=== PATIENT | female | born 1930 | race Caucasian/White ===

== ENCOUNTER 2017-08-10 14:19 | Outpatient (CLI) ==
[2016-06-17 15:02] VITALS: BMI 30.4
== END 2017-08-10 14:20 | disposition home or self-care (01) ==
LOC: CAR 14:19
PROVIDERS: ATTEND Family Medicine
DX: R06.02 Shortness of breath (principal)
CPT/HCPCS: 94761

== ENCOUNTER 2018-04-22 10:00 | Outpatient (RCR) ==
[2016-06-17 15:02] VITALS: BMI 30.4
--- NOTE | 2018-04-10 14:16 | RS.OPPTEV2 ---
Date of Note: 04/10/18 Visit #: 1 Date of Evaluation: 04/10/18 Payer Source: MEDICARE Surgery Performed?: Yes (Right TKA ) Date of Procedure: 03/04/18 Treatment Diagnosis: Right knee stiffness, knee pain, s/p TKA History of Condition/Mechanism of Injury:: Mrs. 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 She a TKA on the left knee in 2016. States this TKA on the right knee has not gone as well as the left knee. States she was in the hospital for 3 days and then went to [place]. States she was not happy with her therapy so she insisted on going home and then received Home Health Physical Therapy. [facility] just ended two days ago. Prior Level of Function.....Patient was independent with: ADL's, Self Care, Caregiving, Ambulation/Mobility, Community Integration/Access Level of Function: Prior to surgery, patient was able to drive and attended community functions and activities such as mormonism. Functional Limitations: Sleep, Self Care, ADL's, Standing, Bending, Squatting, Ambulation, Community Access/Integration Current Subjective/complaints:: Patient states she continues to perform a HEP that she was given from Home Health PT. States she is worried that her ROM is behind. She has been cutting back on her pain medications. She has Oxycodone, but prefers to take OTC medication and ice the knee. She denies tingling or numbness in the right LE. She states she has had no falls in the home. She is able to walk around her apartment without an assistive device, but admits to holding onto buckley or furniture. States she takes a straight cane for long distances. She just progressed to a cane a few days ago. States she wants to be able to drive again. She lives with her at [place]. He has had a stroke and she helps care for him. She believes she goes back to see Dr. Moyer at the end of this month. She expresses difficulty with performing her usual daily activities, getting in/out of vehicle, walking even short distances, and rolling over in bed. States last night was the first time she was able to roll over to her right side. States steps are difficult. She has no stairs at home, but does have a few steps to enter her mormonism. Treatment Side (optional): Right Medical History Medical History: Hypertension, Diabetes, Arthritis Surgical History Comments:: Left TKA 06/14/16, colorectal cancer with 18 inches of colon removed 2014 Smoking Status: Never smoker Hx Home Medications: Oxycodone (has stopped taking), OTC arthritis medication, blood pressure medication Patient's Goals: Her goal is to return to driving. Pain Assessment - Pain Description Pain Location: right knee Pain Description: Throbbing, Aching Current Pain Intensity: 4/10 Functional Outcome Measure LE Functional Scale: 18 (18/80=77.5% impairment) Other: Gait speed today is .45 meters/second with a straight cane, which puts her in the category of being a limited community ambulator. The mean speed for a female in her age category is .63 m/s. - G Codes & Severity Modifier G Codes & Modifier: Mobility current CL. Mobility goal CJ Source of G Code score: Based on both the LE functional scale and Gait speed Observation - Observation Inspection: Patient presents to therapy without an assistive device. She demonstrates transpore tape over the incision from her TKA. The incision appears clean and free of discharge. Demonstrates a small, quarter-size area of redness just medial to incision line. Gait - Gait Pattern Gait Comments: Pt demonstrated difficulty ambulating without an assistive device , so she was given a straight cane to use. She ambulates with a st. cane in the left hand with decreased stance on the right LE. Demonstrates decreased right knee and hip flexion during swing phase. Also demonstrates decreased terminal knee extension at heel strike on the right LE. Transfers from chair or slow and cautious. She uses both arms to push from arm rests of chair and takes her time to get fully erect before initiating ambulation. - Left Knee ROM Left Knee Extension: -2 degrees from full extension Left Knee Flexion: 114 (degrees AROM) - Right Knee ROM Right Knee Extension: -13 degrees from full extension Right Knee Flexion: 73 (degrees AROM) Knee ROM Limitations: Soft Tissue Tightness, Pain Comments: Following ROM ex's and Joint mobs, patient demonstrates AROM -10 to 80 degrees flexion. - Left Knee Strength Left Knee Extension: 4+ Good + Left Knee Flexion: 4+ Good + - Right Knee Strength Right Knee Extension: 4 Good Right Knee Flexion: 4 Good Sensation - Sensation Right Lower Extremity: Intact/Normal Left Lower Extremity: Intact/Normal Balance - Sitting Balance Static Sitting Balance: Good Dynamic Sitting Balance: Good - Standing Balance Static Standing Balance: Good Dynamic Standing Balance: Fair (+) Interventions - Exercise/Activities/Manual Therapy Exercises/Activities: Patient received ROM to the right knee into flex/ extension. Assisted with stretching the heelcord of the right LE while at end range knee extension. Performed SLR and SAQ's, 2 sets of 10 reps without need for assistance. Following exercises, patient demonstrated -10 to 80 degrees AROM of the right knee. Advised patient to perform ROM exercises 3 times a day. Instructed on use of pillow or towel roll under ankle for quad sets and demonstrated how she might be better able to perform active knee flexion in standing rather than supine. Encouraged patient to continue icing the knee for pain and swelling management. Total minutes of Exercise: X 14 mins Manual Therapy: Received Grades I-II Joint mobilization into distraction of the Femoral-Tibia joint to help facilitate flexion. HOME EXERCISE PROGRAM: HEP from Home Health therapy. Gave instructions for quads sets with roll under ankle and standing HS curls for knee flexion. - Charges Timed Code Treatment Minutes: 14 mins Total Treatment Time: 56 mins Procedures billed for this date of service:: DERECK Sanches, EX EVALUATION COMPLEXITY LEVEL EVALUATION COMPLEXITY LEVEL: HISTORY: Low, EXAM OF BODY SYSTEMS: Low, CLINICAL PRESENTATION: Low, CLINICAL DECISION MAKING: Low Assessment Assessment: Patient presents to therapy with a diagnosis of s/p right TKA. She presents with limited AROM and strength of the right knee joint. Demonstrates difficulty with ambulation due to right knee limitations. She reports difficulty with selfcare, ADL's, sleep, and currently relies on staff from [place] for transportation because she is unable to drive. She presents to be at ~ 77% disability at this time per LE functional scale and based on her Gait speed. She demonstrates several gait deviations, requires an assistive device, and presents to be at risk for falls. She shows great potential to benefit from therapy to regain functional right knee AROM and strength to return to her prior level of independence. Patient Education: Education of diagnosis, Body/Joint mechanics, Home Exercise Program, Home Safety, Education of Plan of Care Rehab Potential: Good Short Term Goals Goal #1: Patient independent and compliant with HEP. Goal to be met by: 04/20/18 Goal #2: Right knee AROM -5 to 95 degrees. Goal to be met by: 04/24/18 Goal #3: Gait speed improved to .60 m/s with use of straight cane. Goal to be met by: 04/24/18 Fdc Goals Goal #1: Pt knows HEP and to continue ex's to maintain functional level at D/C. Goal to be met by: 05/20/18 Goal #2: Score on LE functional scale improved to < 39% impairment. Goal to be met by: 05/20/18 Goal #3: Pt to amb. community distances w/o AD with good safety and min. gt dev. Goal to be met by: 05/20/18 Goal #4: Right knee AROM WFL's to perform all selfcare and ADL's, including driving. Goal to be met by: 05/20/18 Plan - Treatment to be Provided Procedures: Therapeutic Exercises, Therapeutic Activity, Gait Training, Neuromuscular Rehab, Manual Therapy (Joint Mobilizations), Patient Education Modalities: Cryotherapy, Hot Packs (as needed prior to stretching/ROM) - Treatment Plan Frequency: 3 X week Duration: 4 weeks ORDER # VISITS AND/OR THROUGH DATE: 05/20/18 - Treatment Code (1) Knee pain Code(s): M25.569 - PAIN IN UNSPECIFIED KNEE Qualifiers: Chronicity: acute Laterality: right Qualified Code(s): M25.561 - Pain in right knee (2) Knee stiffness Qualifiers: Laterality: right Qualified Code(s): M25.661 - Stiffness of right knee, not elsewhere classified (3) Gait abnormality Code(s): R26.9 - UNSPECIFIED ABNORMALITIES OF GAIT AND MOBILITY Comments: R26.9 (4) Aftercare following joint replacement surgery Code(s): Z47.1 - AFTERCARE FOLLOWING JOINT REPLACEMENT SURGERY Qualifiers: Joint replacement surgery site: knee Laterality: right Qualified Code(s) : Z47.1 - Aftercare following joint replacement surgery; Z96.651 - Presence of right artificial knee joint
--- NOTE | 2018-04-12 16:01 | RS.OPPTDN ---
Subjective Date of Note: 04/12/18 Visit #: 2 Date of Evaluation: 04/10/18 Payer Source: MEDICARE Treatment Diagnosis: Right knee stiffness, knee pain, s/p TKA Current Subjective/complaints:: Patient says that she has taken a pain pill prior to coming to therapy. Reports that she seems to be gaining mobility and strength. She is working on HEP. Reports her swelling is fairly low. - Treatment Modality: Electrical Stim Unattended Parameters/Method Applied: hivolt 4 small pads surrounding the R knee @ 175-200 pk volts crossed x 15 mins Treatment Area: AFTER THEREX Patient Position: Supine - Heat/Cryotherapy Treatment: Cryotherapy Interventions - Exercise/Activities/Manual Therapy Exercises/Activities: Patient began with passive stretching for R Hamstrings and heel cords. PROM and gentle stretch for flex/ext. Patellar mobs. QS, heel slides with intermittent overpressures, SAQ, hip abd, DF with red tband, SLR all 2x10 reps. LAQ x 10. Finished with more PROM/stretching. Total minutes of Exercise: 30 Manual Therapy: na HOME EXERCISE PROGRAM: HEP from Home Health therapy. Gave instructions for quads sets with roll under ankle and standing HS curls for knee flexion. - Charges Timed Code Treatment Minutes: 30 Total Treatment Time: 50 Procedures billed for this date of service:: cp, estim (un), ex2 Assessment: Patient demo -5 to 83 degrees at end of session in supine AA and with hip at 90 for knee flexion. Patient Education: Education of diagnosis, Home Exercise Program, Education of Plan of Care Patient demonstrates compliance with HEP?: Yes Short Term Goals Goal #1: Patient independent and compliant with HEP. Goal to be met by: 04/20/18 Progress towards Goal:: Progressing Goal #2: Right knee AROM -5 to 95 degrees. Goal to be met by: 04/24/18 Progress towards Goal:: Progressing Goal #3: Gait speed improved to .60 m/s with use of straight cane. Goal to be met by: 04/24/18 Fpc Goals Goal #1: Pt knows HEP and to continue ex's to maintain functional level at D/C. Goal to be met by: 05/20/18 Goal #2: Score on LE functional scale improved to < 39% impairment. Goal to be met by: 05/20/18 Goal #3: Pt to amb. community distances w/o AD with good safety and min. gt dev. Goal to be met by: 05/20/18 Goal #4: Right knee AROM WFL's to perform all selfcare and ADL's, including driving. Goal to be met by: 05/20/18 Plan PLAN OF CARE EXPIRES ON:: 05/20/18 ORDER # VISITS AND/OR THROUGH DATE: 05/20/18 PLAN: Patient to continue for ROM, pain relief, strengthening to R knee.
--- NOTE | 2018-04-15 13:22 | RS.OPPTDN ---
Subjective Date of Note: 04/15/18 Visit #: 3 Date of Evaluation: 04/10/18 Payer Source: MEDICARE Treatment Diagnosis: Right knee stiffness, knee pain, s/p TKA Current Subjective/complaints:: Patient says she did a lot of errands yesterday. Reports she walked through several stores and has lost her cane as well. States she continues to work on HeP. Pain Assessment - Pain Description Pain Location: Patient does not rate, but pain is usually mild on average and raises with stretching into knee flexion - Treatment Modality: Electrical Stim Unattended Parameters/Method Applied: hivolt 4 small pads crossed over the R knee @ 215 pk volts x 15 mins after therex Patient Position: Supine - Heat/Cryotherapy Treatment: Cryotherapy Interventions - Exercise/Activities/Manual Therapy Exercises/Activities: Patient began with passive stretching for R Hamstrings and heel cords. PROM and gentle stretch for flex/ext. Patellar mobs. QS, heel slides with intermittent overpressures, SAQ added 1#, hip abd, DF with red tband, ham curls with red tband, contract/relax for flex/ext, SLR all 2x10 reps. LAQ x 10. Finished with more PROM/stretching, QS and heel slides. Began stationary bike x 3 mins for half revolutions. Assisted patient to front door providing SC for her to use until she got into her vehicle with caregiver. Total minutes of Exercise: 34 Manual Therapy: na HOME EXERCISE PROGRAM: HEP from Home Health therapy. Gave instructions for quads sets with roll under ankle and standing HS curls for knee flexion. - Charges Timed Code Treatment Minutes: 34 Total Treatment Time: 49 Procedures billed for this date of service:: cp, estim (un), ex2 Assessment: Patient presents amb independently, but requires [employer] due to losing her cane. She has been very active over the weekend and has c/o's stiffness and ache. She was able to awais all progressive stretching and therex well, having elevation only with knee flexion. Some tenderness noted with patellar mobs. Patient able to self stretch on stationary bike with pedal rocks. Reduced pain level following modalities. Patient Education: Education of diagnosis, Home Exercise Program Patient demonstrates compliance with HEP?: Yes Short Term Goals Goal #1: Patient independent and compliant with HEP. Goal to be met by: 04/20/18 Progress towards Goal:: Progressing Goal #2: Right knee AROM -5 to 95 degrees. Goal to be met by: 04/24/18 Progress towards Goal:: Progressing Goal #3: Gait speed improved to .60 m/s with use of straight cane. Goal to be met by: 04/24/18 Senior Care Goals Goal #1: Pt knows HEP and to continue ex's to maintain functional level at D/C. Goal to be met by: 05/20/18 Goal #2: Score on LE functional scale improved to < 39% impairment. Goal to be met by: 05/20/18 Goal #3: Pt to amb. community distances w/o AD with good safety and min. gt dev. Goal to be met by: 05/20/18 Goal #4: Right knee AROM WFL's to perform all selfcare and ADL's, including driving. Goal to be met by: 05/20/18 Plan PLAN OF CARE EXPIRES ON:: 05/20/18 ORDER # VISITS AND/OR THROUGH DATE: 05/20/18 PLAN: Patient to continue TIW for modalities and therex to the R knee
--- NOTE | 2018-04-17 11:45 | RS.OPPTDN ---
Subjective Date of Note: 04/17/18 Visit #: 4 Date of Evaluation: 04/10/18 Payer Source: MEDICARE Treatment Diagnosis: Right knee stiffness, knee pain, s/p TKA Current Subjective/complaints:: Patient says her follow up appt went well yesterday. She had dermabond removed and xray demo all healing well. She admits to working on HEP often. She says her pain is relieved following treatments especially after modalities. Pain Assessment - Pain Description Pain Location: No incisional tenderness - Treatment Modality: Electrical Stim Unattended Parameters/Method Applied: hivolt 4 small pads uncrossed @ 255 pk volts Patient Position: Supine Interventions - Exercise/Activities/Manual Therapy Exercises/Activities: Patient began with passive stretching for R Hamstrings and heel cords. PROM and gentle stretch for flex/ext. Patellar mobs. QS, heel slides with intermittent overpressures, SAQ 1#, hip abd, DF with red tband , ham curls with red tband, contract/relax for flex/ext, SLR all 2x10 reps. LAQ x 10. Patient stands at railing to perform: heel raises, hip flexion, hip abd, and short range ham curl x 8 each. Patient received modalities at end of session. Total minutes of Exercise: 34 Manual Therapy: na HOME EXERCISE PROGRAM: HEP from Home Health therapy. Gave instructions for quads sets with roll under ankle and standing HS curls for knee flexion. - Charges Timed Code Treatment Minutes: 34 Total Treatment Time: 49 Procedures billed for this date of service:: cp, estim (un), ex2 Assessment: Patient presents with her SC amb steadily to our dept. She demo well healing incision with dermabond removed. She is able to demo slight increase in knee flexion with hip at 90 degrees to ~86 and ext to -4. She demo improved ease with performing SLR today. She does not amb at a faster speed, but for goal, this should improve as she progresses and ROM increases. Patient Education: Home Exercise Program, Home Safety Patient demonstrates compliance with HEP?: Yes Short Term Goals Goal #1: Patient independent and compliant with HEP. Goal to be met by: 04/20/18 Progress towards Goal:: Progressing Goal #2: Right knee AROM -5 to 95 degrees. Goal to be met by: 04/24/18 Progress towards Goal:: Progressing Goal #3: Gait speed improved to .60 m/s with use of straight cane. Goal to be met by: 04/24/18 Skilled Nursing Goals Goal #1: Pt knows HEP and to continue ex's to maintain functional level at D/C. Goal to be met by: 05/20/18 Progress towards goal: Progressing Goal #2: Score on LE functional scale improved to < 39% impairment. Goal to be met by: 05/20/18 Goal #3: Pt to amb. community distances w/o AD with good safety and min. gt dev. Goal to be met by: 05/20/18 Goal #4: Right knee AROM WFL's to perform all selfcare and ADL's, including driving. Goal to be met by: 05/20/18 Plan PLAN OF CARE EXPIRES ON:: 05/20/18 ORDER # VISITS AND/OR THROUGH DATE: 05/20/18 PLAN: Patient to continue to work on ROM and strength to the R LE.
--- NOTE | 2018-04-19 11:49 | RS.OPPTDN ---
Subjective Date of Note: 04/19/18 Visit #: 5 Date of Evaluation: 04/10/18 Payer Source: MEDICARE Treatment Diagnosis: Right knee stiffness, knee pain, s/p TKA Current Subjective/complaints:: Patient says she has been walking around in her apartment without her cane/RW and feels steady. She admits forgetting it for therapy and does not remember taking her pain medication this morning. - Treatment Modality: Electrical Stim Unattended Parameters/Method Applied: cross pattern hivolt over the R knee @ 185-230 pk volts x 15 mins after therex Patient Position: Supine - Heat/Cryotherapy Treatment: Hot Pack (15 mins to the R knee prior to therex in supine, cryo after with estim) Interventions - Exercise/Activities/Manual Therapy Exercises/Activities: Patient continues with passive stretching for R Hamstrings and heel cords. PROM and gentle stretch for flex/ext. Patellar mobs. Ankle over bolster to stretch for extension. Joint mobs grades I and II multiple reps. QS, heel slides with intermittent overpressures, SAQ 1#, hip abd, DF with red tband, ham curls with red tband, contract/relax for flex/ext, SLR all 2x10 reps. Sitting: Ball squeezes (aram hip add), LAQ 1#x 10. Contract/relax in sitting at EOB. Stationary bike for half revolutions with increased ability for patient to self stretch backwards x 4.5 mins. Measurements taken. Total minutes of Exercise: 38 Manual Therapy: na HOME EXERCISE PROGRAM: HEP from Home Health therapy. Gave instructions for quads sets with roll under ankle and standing HS curls for knee flexion. - Objective Findings Observations,measurements,etc.: Supine knee flexion to 85 degrees, with hip at 90: 88 degrees. EXT: -4 with QS - Charges Timed Code Treatment Minutes: 38 Total Treatment Time: 68 Procedures billed for this date of service:: cp, estim (un), ex3 Assessment: Patient improving with ROM this week and now amb independently at home and has been coming to PT without needing SC. She is not able to complete full revolutions on bike yet, but is more awais to self stretching while utilizing bike. Encouraged her to work on her HEP more often. Amb with near equal WB'ing. Patient Education: Education of diagnosis, Home Exercise Program, Education of Plan of Care Patient demonstrates compliance with HEP?: Yes Short Term Goals Goal #1: Patient independent and compliant with HEP. Goal to be met by: 04/20/18 Progress towards Goal:: Progressing Goal #2: Right knee AROM -5 to 95 degrees. Goal to be met by: 04/24/18 Progress towards Goal:: Progressing Goal #3: Gait speed improved to .60 m/s with use of straight cane. Goal to be met by: 04/24/18 Care Home Goals Goal #1: Pt knows HEP and to continue ex's to maintain functional level at D/C. Goal to be met by: 05/20/18 Progress towards goal: Progressing Goal #2: Score on LE functional scale improved to < 39% impairment. Goal to be met by: 05/20/18 Goal #3: Pt to amb. community distances w/o AD with good safety and min. gt dev. Goal to be met by: 05/20/18 Goal #4: Right knee AROM WFL's to perform all selfcare and ADL's, including driving. Goal to be met by: 05/20/18 Plan PLAN OF CARE EXPIRES ON:: 05/20/18 ORDER # VISITS AND/OR THROUGH DATE: 05/20/18 PLAN: Patient to continue TIW
--- NOTE | 2018-04-22 14:40 | RS.OPPTDN ---
Subjective Date of Note: 04/22/18 Visit #: 6 Date of Evaluation: 04/10/18 Payer Source: MEDICARE Treatment Diagnosis: Right knee stiffness, knee pain, s/p TKA Current Subjective/complaints:: Patient says that her knee is stiff and the heat last visit seemed to help with her motion and pain relief. She requests it today. Pain Assessment - Pain Description Pain Location: stiff - Heat/Cryotherapy Treatment: Hot Pack (15 mins to the R knee in supine) Interventions - Exercise/Activities/Manual Therapy Exercises/Activities: Patient continues with passive stretching for R Hamstrings and heel cords. PROM and gentle stretch for flex/ext. Patellar mobs. Ankle over bolster to stretch for extension. Joint mobs grades I and II multiple reps. QS, heel slides with intermittent overpressures, SAQ 1#, hip abd, DF with red tband, ham curls with red tband, contract/relax for flex/ext, SLR all 2x10 reps. Sitting: Ball squeezes (aram hip add), LAQ 1#x 10. Contract/relax in sitting at EOB. Stationary bike for half revolutions nearly making it completely around with increased ability for patient to self stretch backwards x 4.5 mins. Total minutes of Exercise: 38 Manual Therapy: na HOME EXERCISE PROGRAM: HEP from Home Health therapy. Gave instructions for quads sets with roll under ankle and standing HS curls for knee flexion. - Charges Timed Code Treatment Minutes: 38 Total Treatment Time: 53 Procedures billed for this date of service:: hp, ex3 Assessment: Patient presents with independent gait, slight decrease in WB to the R LE. She is able to demo 90 degrees of knee flexion today with hip at 90 degrees. Patient Education: Education of diagnosis, Home Exercise Program Patient demonstrates compliance with HEP?: Yes Short Term Goals Goal #1: Patient independent and compliant with HEP. Goal to be met by: 04/20/18 Progress towards Goal:: Progressing Goal #2: Right knee AROM -5 to 95 degrees. Goal to be met by: 04/24/18 Progress towards Goal:: Progressing Goal #3: Gait speed improved to .60 m/s with use of straight cane. Goal to be met by: 04/24/18 Progress towards Goal:: Progressing Alf Goals Goal #1: Pt knows HEP and to continue ex's to maintain functional level at D/C. Goal to be met by: 05/20/18 Progress towards goal: Progressing Goal #2: Score on LE functional scale improved to < 39% impairment. Goal to be met by: 05/20/18 Goal #3: Pt to amb. community distances w/o AD with good safety and min. gt dev. Goal to be met by: 05/20/18 Goal #4: Right knee AROM WFL's to perform all selfcare and ADL's, including driving. Goal to be met by: 05/20/18 Plan PLAN OF CARE EXPIRES ON:: 05/20/18 ORDER # VISITS AND/OR THROUGH DATE: 05/20/18 PLAN: Patient to continue TIW x 2 more weeks
== END 2018-04-23 23:59 ==
PROVIDERS: ATTEND Orthopaedic Surgery
DX: Z47.1 Aftercare following joint replacement surgery (principal); Z96.651 Presence of right artificial knee joint; M25.561 Pain in right knee; M25.661 Stiffness of right knee, not elsewhere classified; R26.9 Unspecified abnormalities of gait and mobility

== ENCOUNTER 2018-05-06 10:00 | Outpatient (RCR) ==
[2016-06-17 15:02] VITALS: BMI 30.4
--- NOTE | 2018-04-24 11:51 | RS.OPPTDN ---
Subjective Date of Note: 04/24/18 Visit #: 7 Date of Evaluation: 04/10/18 Payer Source: MEDICARE Treatment Diagnosis: Right knee stiffness, knee pain, s/p TKA Current Subjective/complaints:: Patient says she is now purposely leaving her cane at home when she goes out into the community. She says mobility has been better since using heat to her knee. Reporting less pain. Pain meds taken at morning and bedtime. Pain Assessment - Pain Description Pain Location: -12/01 - Heat/Cryotherapy Treatment: Hot Pack (20 mins to the R knee in supine in flexed position to provide increased ROM) Interventions - Exercise/Activities/Manual Therapy Exercises/Activities: Patient continues with passive stretching for R Hamstrings and heel cords. PROM and gentle stretch for flex/ext. Patellar mobs. Ankle over bolster to stretch for extension. QS, heel slides with intermittent overpressures, SAQ 1 1/2#, hip abd, DF with green tband, ham curls with red tband, contract/relax for flex/ext, SLR all 2x10 reps. Sitting: Ball squeezes (aram hip add), LAQ 1 1/2#x 10. Contract/relax in sitting at EOB. Ham curls with red tband at EOB x 10. Standing at railing: hip abd, ham curls, heel raises, hip flexion x 10 reps. Total minutes of Exercise: 38 Manual Therapy: na HOME EXERCISE PROGRAM: HEP from Home Health therapy. Gave instructions for quads sets with roll under ankle and standing HS curls for knee flexion. - Charges Timed Code Treatment Minutes: 38 Total Treatment Time: 58 Procedures billed for this date of service:: hp, ex3 Assessment: Patient shelbie improved awais to increased knee flexion exercises/ stretching. She is averaging ~92 degrees with hip flexed at 90. Limitation continues with ext, but improves with active QS to ~-3 degrees. Patient Education: Education of diagnosis, Home Exercise Program, Home Safety, Education of Plan of Care Patient demonstrates compliance with HEP?: Yes Short Term Goals Goal #1: Patient independent and compliant with HEP. Goal to be met by: 04/20/18 Progress towards Goal:: Progressing Goal #2: Right knee AROM -5 to 95 degrees. Goal to be met by: 04/24/18 Progress towards Goal:: Progressing Goal #3: Gait speed improved to .60 m/s with use of straight cane. Goal to be met by: 04/24/18 Progress towards Goal:: Progressing Manager English Goals Goal #1: Pt knows HEP and to continue ex's to maintain functional level at D/C. Goal to be met by: 05/20/18 Progress towards goal: Progressing Goal #2: Score on LE functional scale improved to < 39% impairment. Goal to be met by: 05/20/18 Goal #3: Pt to amb. community distances w/o AD with good safety and min. gt dev. Goal to be met by: 05/20/18 Goal #4: Right knee AROM WFL's to perform all selfcare and ADL's, including driving. Goal to be met by: 05/20/18 Plan PLAN OF CARE EXPIRES ON:: 05/20/18 ORDER # VISITS AND/OR THROUGH DATE: 05/20/18 PLAN: Continue TIW for progressive therex to the R knee
--- NOTE | 2018-04-26 12:01 | RS.OPPTDN ---
Subjective Date of Note: 04/26/18 Visit #: 8 Date of Evaluation: 04/10/18 Payer Source: MEDICARE Treatment Diagnosis: Right knee stiffness, knee pain, s/p TKA Current Subjective/complaints:: Patient says she has been working on bending her knee more at home. She says she is eager to resume driving. - Heat/Cryotherapy Treatment: Hot Pack (R knee prior to exercise x 20 mins supine) Interventions - Exercise/Activities/Manual Therapy Exercises/Activities: Patient continues with passive stretching for R Hamstrings and heel cords. PROM and stretch for flex/ext. Patellar mobs. Ankle over bolster to stretch for extension. QS, heel slides with intermittent overpressures, SAQ 1 1/2#, hip abd in hooklying with red tband, DF with green tband, ham curls with red tband, contract/relax for flex/ext, SLR all 2x10 reps. Sitting: Ball squeezes (aram hip add), LAQ 1 /2#x 10. Contract/relax in sitting at EOB. Ham curls with red tband at EOB x 10. Stationary bike x 5 mins half revolutions again with continuous self stretching for flexion. Total minutes of Exercise: 38 Manual Therapy: na HOME EXERCISE PROGRAM: HEP from Home Health therapy. Gave instructions for quads sets with roll under ankle and standing HS curls for knee flexion. - Objective Findings Observations,measurements,etc.: FLEX:93 degrees with heel slide - Charges Timed Code Treatment Minutes: 38 Total Treatment Time: 58 Procedures billed for this date of service:: hp, ex3 Assessment: Patient improving slowly with flexion. She is not able to make full revolutions on stationary bike, but feel like limitation is also due to fear because she self stretches to 95+ degrees during half revolutions. Patient very compliant with HEP and amb slightly faster with gt to/from dept not requiring AD or holding onto railing for support. Patient Education: Home Exercise Program Patient demonstrates compliance with HEP?: Yes Short Term Goals Goal #1: Patient independent and compliant with HEP. Goal to be met by: 04/20/18 Progress towards Goal:: Met Goal #2: Right knee AROM -5 to 95 degrees. Goal to be met by: 04/24/18 Progress towards Goal:: Partially Met Goal #3: Gait speed improved to .60 m/s with use of straight cane. Goal to be met by: 04/24/18 Progress towards Goal:: Progressing Bilingual Interpreter Goals Goal #1: Pt knows HEP and to continue ex's to maintain functional level at D/C. Goal to be met by: 05/20/18 Progress towards goal: Progressing Goal #2: Score on LE functional scale improved to < 39% impairment. Goal to be met by: 05/20/18 Goal #3: Pt to amb. community distances w/o AD with good safety and min. gt dev. Goal to be met by: 05/20/18 Goal #4: Right knee AROM WFL's to perform all selfcare and ADL's, including driving. Goal to be met by: 05/20/18 Plan PLAN OF CARE EXPIRES ON:: 05/20/18 ORDER # VISITS AND/OR THROUGH DATE: 05/20/18 PLAN: Continue x 1 more week per order
--- NOTE | 2018-04-29 14:23 | RS.OPPTDN ---
Subjective Date of Note: 04/29/18 Visit #: 9 Date of Evaluation: 04/10/18 Payer Source: MEDICARE Treatment Diagnosis: Right knee stiffness, knee pain, s/p TKA Current Subjective/complaints:: Patient says she thinks she "overdid" it on the weekend. She says she walked more than usual and she pulled weeds in her yard. She says she is having elevated pain today as a result. Pain Assessment - Pain Description Pain Location: elevated - Heat/Cryotherapy Treatment: Hot Pack Comments:: R knee prior to therex x 15 mins in supine Interventions - Exercise/Activities/Manual Therapy Exercises/Activities: Patient continues with passive stretching for R Hamstrings and heel cords. PROM and stretch for flex/ext. Patellar mobs. Joint mobs to improve flexion grades I-II. Ankle over bolster to stretch for extension. QS, heel slides with intermittent overpressures, SAQ 1 1/2#, hip abd in hooklying with red tband, DF with green tband, ham curls with red tband, contract/relax for flex/ext, SLR all 2x10 reps. Sitting: Ball squeezes (aram hip add), LAQ 1 1/2#x 10. Contract/relax in sitting at EOB. Ham curls with red tband at EOB x 10. Stationary bike x 5 mins half revolutions again with continuous self stretching for flexion. Finished with LAQ and standing knee bends. Total minutes of Exercise: 38 Manual Therapy: na HOME EXERCISE PROGRAM: HEP from Home Health therapy. Gave instructions for quads sets with roll under ankle and standing HS curls for knee flexion. - Charges Timed Code Treatment Minutes: 38 Total Treatment Time: 53 Procedures billed for this date of service:: hp, ex3 Assessment: Patient with elevated pain as a result of increased activity over the weekend. She is able to perform all routine therex today, but did have difficulty with awais gentle stretching for flexion. She is still unable to accomplish full revolutions on stationary bike, but feel she remains fearful of possibility of increased pain. Patient Education: Activity Modification Patient demonstrates compliance with HEP?: Yes Short Term Goals Goal #1: Patient independent and compliant with HEP. Goal to be met by: 04/20/18 Progress towards Goal:: Met Goal #2: Right knee AROM -5 to 95 degrees. Goal to be met by: 04/24/18 Progress towards Goal:: Partially Met Goal #3: Gait speed improved to .60 m/s with use of straight cane. Goal to be met by: 04/24/18 Progress towards Goal:: Progressing Supervisor Production Goals Goal #1: Pt knows HEP and to continue ex's to maintain functional level at D/C. Goal to be met by: 05/20/18 Progress towards goal: Progressing Goal #2: Score on LE functional scale improved to < 39% impairment. Goal to be met by: 05/20/18 Comments: Patient to complete next session Goal #3: Pt to amb. community distances w/o AD with good safety and min. gt dev. Goal to be met by: 05/20/18 Goal #4: Right knee AROM WFL's to perform all selfcare and ADL's, including driving. Goal to be met by: 05/20/18 Plan PLAN OF CARE EXPIRES ON:: 05/20/18 ORDER # VISITS AND/OR THROUGH DATE: 05/20/18 PLAN: Reassess next session. Patient to continue to progress therex.
--- NOTE | 2018-05-01 11:53 | RS.OPPTDN ---
Subjective Date of Note: 05/01/18 Visit #: 10 Date of Evaluation: 04/10/18 Payer Source: MEDICARE Treatment Diagnosis: Right knee stiffness, knee pain, s/p TKA Current Subjective/complaints:: Patient says she is going to try to practice getting in/out of the drivers seat of her van. She says she has no problem with the passenger side and wants to start driving. She reports sometimes she forgets to take her pain meds at bedtime. Michelle reports being able to do everything she needs to do at home with the exception of driving as she has assistance with heavier housekeeping at assisted living. - Heat/Cryotherapy Treatment: Hot Pack (20 mins to the R knee in supine) Interventions - Exercise/Activities/Manual Therapy Exercises/Activities: Patient continues with passive stretching for R Hamstrings and heel cords. PROM and stretch for flex/ext. Patellar mobs. Scar tissue massage. Joint mobs to improve flexion grades I-II. Ankle over bolster to stretch for extension. QS, heel slides with intermittent overpressures, SAQ 2#, hip abd in hooklying with red tband, DF with green tband , ham curls with red tband, contract/relax for flex/ext, SLR all 2x10 reps. Sitting: Ball squeezes (aram hip add), LAQ 2#x 10. Contract/relax in sitting at EOB. Hip flexion with 2# x 10. Ham curls with green tband at EOB x 10. Assisted with LE Functional Index and measured. Total minutes of Exercise: 40 Manual Therapy: na HOME EXERCISE PROGRAM: HEP from Home Health therapy. Gave instructions for quads sets with roll under ankle and standing HS curls for knee flexion. - Objective Findings Observations,measurements,etc.: LE Functional Index: 39/80 or 52% impairment - Charges Timed Code Treatment Minutes: 40 Total Treatment Time: 60 Procedures billed for this date of service:: hp, ex3 Assessment: Patient has progressed with mobility, strength, independent gait, and functionally per LE Index. She discusses holding further therapy after her final 2 visits due to her progress. However, she does not follow up with the orthopaedic in May. Patient Education: Home Exercise Program, Home Safety, Education of Plan of Care Patient demonstrates compliance with HEP?: Yes Short Term Goals Goal #1: Patient independent and compliant with HEP. Goal to be met by: 04/20/18 Progress towards Goal:: Met Goal #2: Right knee AROM -5 to 95 degrees. Goal to be met by: 04/24/18 Progress towards Goal:: Met Goal #3: Gait speed improved to .60 m/s with use of straight cane. Goal to be met by: 04/24/18 Progress towards Goal:: Progressing Intermediate Goals Goal #1: Pt knows HEP and to continue ex's to maintain functional level at D/C. Goal to be met by: 05/20/18 Progress towards goal: Progressing Goal #2: Score on LE functional scale improved to < 39% impairment. Goal to be met by: 05/20/18 Progress towards goal: Progressing Comments: 52% currently Goal #3: Pt to amb. community distances w/o AD with good safety and min. gt dev. Goal to be met by: 05/20/18 Progress towards goal: Progressing Goal #4: Right knee AROM WFL's to perform all selfcare and ADL's, including driving. Goal to be met by: 05/20/18 Progress towards goal: Progressing Plan PLAN OF CARE EXPIRES ON:: 05/20/18 ORDER # VISITS AND/OR THROUGH DATE: 05/20/18 PLAN: Patient to continue 2 more sessions. Possibly hold thereafter per her request.
--- NOTE | 2018-05-01 13:59 | RS.PTSUM ---
Progress Note/Summary Date of Note: 05/01/18 Date of Evaluation: 04/10/18 Number of Visits: 10 Reporting Period for this Progress Note: 04/10/18 through 05/01/18 Current Complaints/Gains: Pt says she can do almost everything now on her own except for driving. She is going to practice getting in/out of the moving van driver's side of her vehicle. She is taking pain medication BID. Reports sleeping well and performing her HEP often. Also reports her swelling and pain is less. Objective Measurements/Presentation: Right knee AAROM -3 to 95 degrees in supine. MS 4/+5 grossly right LE. Pt ambulates independently with a short stride and steady gait, without an assistive device. G Codes: Mobility current CK. Mobility goal CJ Source of G Code Score: LE functional scale, score of 39/80=52% impairment - Short Term Goals Goal #1: Patient independent and compliant with HEP. Goal to be met by: 04/20/18 Progress towards Goal:: Met Goal #2: Right knee AROM -5 to 95 degrees. Goal to be met by: 04/24/18 Progress towards Goal:: Met Goal #3: Gait speed improved to .60 m/s without assistive device. Goal to be met by: 05/08/18 Progress towards Goal:: Progressing - Alf Goals Goal #1: Pt knows HEP and to continue ex's to maintain functional level at D/C. Goal to be met by: 05/20/18 Progress towards goal: Progressing Goal #2: Score on LE functional scale improved to < 39% impairment. Goal to be met by: 05/20/18 Progress towards goal: Progressing Goal #3: Pt to amb. community distances w/o AD with good safety and min. gt dev. Goal to be met by: 05/20/18 Progress towards goal: Progressing Goal #4: Right knee AROM WFL's to perform all selfcare and ADL's, including driving. Goal to be met by: 05/20/18 Progress towards goal: Progressing - Assessment Assessment of Improvement/Progress: Ms. Mccollum has made good progress with ROM , gait progression, and strength. She reports being able to do as much as she needs to, but her score on the LE functional scale shows her to be at 52% impairment. She still has difficulty with prolonged standing and sitting, stairs , and getting in and out of the drivers side of her vehicle due to limited knee flexion. She demonstrates potential to gain further functional AROM and greater independence with ADL's. - Plan Plan: Continue Plan of Care PLAN OF CARE EXPIRES ON:: 05/20/18 ORDER # VISITS AND/OR THROUGH DATE: 05/20/18
--- NOTE | 2018-05-03 11:47 | RS.OPPTDN ---
Subjective Date of Note: 05/03/18 Visit #: 11 Date of Evaluation: 04/10/18 Payer Source: MEDICARE Treatment Diagnosis: Right knee stiffness, knee pain, s/p TKA Current Subjective/complaints:: Patient says she tried to get in/out drivers side of her van yesterday. She says she was able to do it well and is pleased. Pain Assessment - Pain Description Pain Location: -12/01 - Heat/Cryotherapy Treatment: Hot Pack (15 mins to the R knee in supine ) Interventions - Exercise/Activities/Manual Therapy Exercises/Activities: Patient continues with passive stretching for R Hamstrings and heel cords. PROM and stretch for flex/ext. Patellar mobs. Scar tissue massage. Joint mobs to improve flexion grades I-II. Ankle over bolster to stretch for extension. QS, heel slides with intermittent overpressures, SAQ 2#, hip abd in hooklying with red tband, DF with green tband , ham curls with green tband, contract/relax for flex/ext, SLR2#, ball squeezes all 2x10 reps. Sitting: ham curls with green tband x 10. Stationary bike 1/2 revolutions with self stretching. Total minutes of Exercise: 38 Manual Therapy: na HOME EXERCISE PROGRAM: HEP from Home Health therapy. Gave instructions for quads sets with roll under ankle and standing HS curls for knee flexion. - Charges Timed Code Treatment Minutes: 38 Total Treatment Time: 53 Procedures billed for this date of service:: hp, ex3 Assessment: Patient improving with progressive therex maintaining ~95 degrees avg active flexion with remaining -3 degrees extension. She is able to do all activities now at home with also being able to get in/out safely in the drivers side of her van. She is eager to begin driving. She will return to Dr. Moyer in May. Patient Education: Education of Plan of Care Patient demonstrates compliance with HEP?: Yes Short Term Goals Goal #1: Patient independent and compliant with HEP. Goal to be met by: 04/20/18 Progress towards Goal:: Met Goal #2: Right knee AROM -5 to 95 degrees. Goal to be met by: 04/24/18 Progress towards Goal:: Met Goal #3: Gait speed improved to .60 m/s without assistive device. Goal to be met by: 05/08/18 Progress towards Goal:: Progressing Comments:: assess next session Regulatory Affairs Associate Goals Goal #1: Pt knows HEP and to continue ex's to maintain functional level at D/C. Goal to be met by: 05/20/18 Progress towards goal: Progressing Goal #2: Score on LE functional scale improved to < 39% impairment. Goal to be met by: 05/20/18 Progress towards goal: Progressing Goal #3: Pt to amb. community distances w/o AD with good safety and min. gt dev. Goal to be met by: 05/20/18 Progress towards goal: Met Goal #4: Right knee AROM WFL's to perform all selfcare and ADL's, including driving. Goal to be met by: 05/20/18 Progress towards goal: Partially Met (patient has not been released to drive, but has performed all necessary ADLs/home care) Plan PLAN OF CARE EXPIRES ON:: 05/20/18 ORDER # VISITS AND/OR THROUGH DATE: 05/20/18 PLAN: Patient has 1 session remaining on current order. Complete on . She may continue with HEP until she returns to [place] next month.
--- NOTE | 2018-05-07 09:03 | RS.OPPTDN ---
Subjective Date of Note: 05/06/18 Visit #: 12 Date of Evaluation: 04/10/18 Payer Source: MEDICARE Treatment Diagnosis: Right knee stiffness, knee pain, s/p TKA Current Subjective/complaints:: Patient says she has overdid it walking around at [facility]. She says that she drove to therapy today and did very well. She is happy that she has gained some of her independence back. Pain Assessment - Pain Description Pain Location: medial side of the R knee - Heat/Cryotherapy Treatment: Hot Pack (R knee ant/post (hamstring) x 20 mins supine) Interventions - Exercise/Activities/Manual Therapy Exercises/Activities: Patient continues with passive stretching for R Hamstrings and heel cords. PROM and stretch for flex/ext. Patellar mobs. Scar tissue massage. Ankle over bolster to stretch for extension. QS, heel slides with intermittent overpressures, SAQ 2 1/2#, hip abd in hooklying with red tband, DF with green tband, ham curls with green tband, contract/relax for flex/ext, SLR2#, ball squeezes all 2x10 reps. Sitting: ham curls with green tband x 10. Stationary bike now full revolutions consecutively backwards x 4 mins. Measurements taken. 6m speed test to compare to eval. Review of HEP. Total minutes of Exercise: 40 Manual Therapy: na HOME EXERCISE PROGRAM: HEP from Home Health therapy. Gave instructions for quads sets with roll under ankle and standing HS curls for knee flexion. - Objective Findings Observations,measurements,etc.: -3 to 97 degrees AROM in supine after therex - Charges Timed Code Treatment Minutes: 40 Total Treatment Time: 60 Procedures billed for this date of service:: hp, ex3 Assessment: Patient has met most all goals. She has resumed driving, but only into town to therapy. She is compliant with HEP, improved ROM and maintaining low pain level. Full backwards revolutions on bike, resuming all ADLs and light housekeeping (as she has Assisted Living caretakers to handle heavier tasks). She expresses being pleased with her progress at this time. Patient Education: Home Exercise Program, Home Safety, Education of Plan of Care Patient demonstrates compliance with HEP?: Yes Short Term Goals Goal #1: Patient independent and compliant with HEP. Goal to be met by: 04/20/18 Progress towards Goal:: Met Goal #2: Right knee AROM -5 to 95 degrees. Goal to be met by: 04/24/18 Progress towards Goal:: Met Comments:: -3 to 97 today Actively Goal #3: Gait speed improved to .60 m/s without assistive device. Goal to be met by: 05/08/18 Progress towards Goal:: Progressing Comments:: Patient amb 6m (to/from chair) in 13 sec's independently Collateral Specialist Goals Goal #1: Pt knows HEP and to continue ex's to maintain functional level at D/C. Goal to be met by: 05/20/18 Progress towards goal: Met Goal #2: Score on LE functional scale improved to < 39% impairment. Goal to be met by: 05/20/18 Progress towards goal: Progressing Comments: 47% currently. Met personal goal of driving. Goal #3: Pt to amb. community distances w/o AD with good safety and min. gt dev. Goal to be met by: 05/20/18 Progress towards goal: Met Goal #4: Right knee AROM WFL's to perform all selfcare and ADL's, including driving. Goal to be met by: 05/20/18 Progress towards goal: Partially Met (patient has not been released to drive, but has performed all necessary ADLs/home care) Plan PLAN OF CARE EXPIRES ON:: 05/20/18 ORDER # VISITS AND/OR THROUGH DATE: 05/20/18 PLAN: Recommend D/c as patient has completed order and has returned to PLOF. She is pleased with her progress at this time. She will have a follow up with Dr. Moyer next month.
--- NOTE | 2018-05-09 11:35 | RS.OPPTDC ---
Date of Discharge: 05/06/18 Date of Evaluation: 04/10/18 Number of Visits: 12 Treatment Diagnosis: Right knee stiffness, knee pain, s/p TKA Current Complaints/Gains: Patient reports beginning to drive and reports no difficulty. She reports increased fatigue and soreness form walking at [facility]. She is performing all light housekeeping/ADL's. Functional Outcome Measure LE Functional Scale: 43 (43/80=47% impairment) - G Codes & Severity Modifier G Codes & Modifier: Mobility D/C CK. Mobility Goal CJ Source of G Code score: LE functional Scale. improvement from at evaluation to 43/80 at D/C. Gait - Gait Pattern Gait Comments: Ms. Mccollum ambulating without an assistive device with decreased stance on the right LE. Demonstrates improved gait speed compared to evaluation. Interventions - Exercise/Activities/Manual Therapy Exercises/Activities: NA Manual Therapy: na HOME EXERCISE PROGRAM: HEP from Home Health therapy. Gave instructions for quads sets with roll under ankle and standing HS curls for knee flexion. - Objective Findings Observations,measurements,etc.: Right knee AROM -3 to 97 degrees flexion. - Charges Timed Code Treatment Minutes: Na Total Treatment Time: NA Procedures billed for this date of service:: NA Assessment Assessment: Ms. Mccollum has made good progress with all mobility. She reports being able to perform all her light ADL's and is also driving now. She feels she can continue on her own with her HEP. Short Term Goals Goal #1: Patient independent and compliant with HEP. Goal to be met by: 04/20/18 Progress towards Goal:: Met Goal #2: Right knee AROM -5 to 95 degrees. Goal to be met by: 04/24/18 Progress towards Goal:: Met Goal #3: Gait speed improved to .60 m/s without assistive device. Goal to be met by: 05/08/18 Progress towards Goal:: Not Met Senior Care Goals Goal #1: Pt knows HEP and to continue ex's to maintain functional level at D/C. Goal to be met by: 05/20/18 Progress towards goal: Met Goal #2: Score on LE functional scale improved to < 39% impairment. Goal to be met by: 05/20/18 Progress towards goal: Not Met Goal #3: Pt to amb. community distances w/o AD with good safety and min. gt dev. Goal to be met by: 05/20/18 Progress towards goal: Met Goal #4: Right knee AROM WFL's to perform all selfcare and ADL's, including driving. Goal to be met by: 05/20/18 Progress towards goal: Met Plan Reason for Discharge:: No Further Skilled Therapy Indicated
== END 2018-05-24 23:59 ==
PROVIDERS: ATTEND Orthopaedic Surgery
DX: Z47.1 Aftercare following joint replacement surgery (principal); Z96.651 Presence of right artificial knee joint; R26.9 Unspecified abnormalities of gait and mobility; M25.661 Stiffness of right knee, not elsewhere classified; M25.561 Pain in right knee

== ENCOUNTER 2019-01-07 12:46 | Outpatient (CLI) ==
[2016-06-17 15:02] VITALS: BMI 30.4
--- NOTE | 2019-01-07 14:24 | DI ---
EXAM: Lumbar spine three view HISTORY: Pain COMPARISON: None TECHNIQUE: Three views lumbar spine were performed FINDINGS: Sacroiliac joints intact. Sacral arcuate lines intact. An age indeterminate compression fracture deformity L2 and possibly is L5 superior endplate. Multilevel marginal osteophyte formation . Mild and moderate multilevel intervertebral disc space narrowing. Multilevel facet arthrosis that is greatest in the lower spine. 3 mm anterolisthesis of four on L5. Atherosclerotic vascular calci fication. IMPRESSION: 1. Age indeterminate compression fracture deformity L2 and possibly L5 superior endplate. 2. Chronic discogenic degenerative disease and facet arthrosis.
== END 2019-01-07 12:47 | disposition home or self-care (01) ==
LOC: RAD 12:46
PROVIDERS: ATTEND Family Medicine
DX: M54.5 Low back pain (principal)

== ENCOUNTER 2019-01-10 08:57 | Outpatient (CLI) ==
[2016-06-17 15:02] VITALS: BMI 30.4
--- NOTE | 2019-01-11 20:58 | MRI ---
EXAM: Lumbar spine MRI without contrast. HISTORY: Acute left-sided low back pain. COMPARISON: Lumbar spine radiographs 01/07/2019. TECHNIQUE: Multiplanar, multisequence MR images were acquired of the lumbar spine without contrast. FINDINGS: Five [id number] lumbar vertebra are present. Conus medullaris ends at L1-2 and is no rmal morphology and signal intensity. There is mild thoracolumbar levoscoliosis centered at L1-2 and there is 1.5 mm retrolisthesis of L2 on L3, a trace anterolisthesis of L3 on L4 and 3 mm anterolisth esis of L4 for on L5. There is a mild chronic right anterior inferior endplate compression fracture of L2 with irregular concavity of the inferior endplate and moderate anterior and midline type 2 endp late changes and a mild chronic L5 superior endplate compression fracture with irregular concavity of the superior endplate, a small chronic Schmorl's node and type 2 endplate changes. There is desicca tion of the lumbar intervertebral discs and mild posterior disc space narrowing at L2-3 and mild diff use disc space narrowing and L4-5. The partially visualized liver is prominent raising the possibility of hepatomegaly. The spleen is u nremarkable. The kidneys are poorly visualized due to respiratory motion artifact. There is probabl e mild to moderate right and moderate left pelvocaliectasis and both kidneys are indistinct. Respira tory motion limits detail. Renal CT or ultrasound could better define the anatomy. L1-2: There is a mild bilobed posterior disc bulge with endplate osteophytes that minimally effaces ventral thecal sac without spinal stenosis. Neural foramina are patent. L2-3: There is a mild chronic right anterior inferior compression fracture of L2 with 2.8 mm retropu lsion. There is a mild diffuse disc bulge with a small right posterolateral disc extrusion and broad -based right lateral/far lateral endplate osteophytes that may encroach on the exiting right L2 nerve . There is mild to moderate left and mild right hypertrophic facet arthropathy and ligamentum flavum hypertrophy which narrows the posterolateral thecal sac bilaterally. There is mild spinal stenosis, right lateral recess stenosis with possible encroachment on the right L3 nerve roots and mild to mod erate right and mild left neural foraminal stenosis. A left perineural cyst is present. AP diameter of the thecal sac is 7.4 mm. L3-4: There is a minor bilobed spondylotic disc bulge and moderate bilateral hypertrophic facet arth ropathy and ligamentum flavum hypertrophy. There are small bilateral facet effusions and there are s mall synovial cysts along the L3-4 spinous processes raising the possibility of Baastrup's phenomenon . There is mild spinal stenosis, moderate stenosis at the entry to the right neural foramen and mild to moderate left neural foraminal stenosis. AP diameter of the thecal sac is 7.7 mm. L4-5: There is a mild chronic L5 superior endplate compression fracture with 3.5 mm retropulsion of the L5 posterior superior endplate and L4-5 intervertebral disc which mildly effaces the ventral thec al sac without spinal stenosis. Severe bilateral hypertrophic facet arthropathy is present with anky losis of both facet joints and there is minor bilateral foraminal stenosis. There is no central zamzam l stenosis. L5-S1: There is a diffuse spondylotic ridge with moderate bilateral far lateral endplate osteophytes that encroach on both L5 nerves exiting the neural foramina. Severe right and mild left hypertrophi c facet arthropathy is present. There is right lateral recess stenosis with possible encroachment on the right S1 nerve roots and mild to moderate stenosis at the entry to the right neural foramen. Mi ld left neural foraminal stenosis is present. There is no central canal stenosis. IMPRESSION: 1. Mild chronic right inferior endplate compression fracture L2 with 2.8 mm retropulsion and mild sp inal stenosis. 2. Mild chronic L5 superior endplate compression fracture with 3.5 mm retropulsion without spinal st enosis. 3. Small right posterolateral disc extrusion L2-3 that may encroach on the right L3 nerve roots. 4. 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 5. Multilevel foraminal stenosis. 6. Findings suggestive of mild to moderate right and moderate left pelvocaliectasis. Both kidneys a re not well seen and dedicated renal ultrasound or CT could better define the anatomy. 7. No acute compression fractures.
== END 2019-01-10 08:58 | disposition home or self-care (01) ==
LOC: RAD 08:57 → LAB 08:58
PROVIDERS: ATTEND Family Medicine
DX: R30.0 Dysuria (principal); M54.5 Low back pain
CPT/HCPCS: 81001; 87086

== ENCOUNTER 2019-01-16 07:58 | Outpatient (CLI) ==
[2016-06-17 15:02] VITALS: BMI 30.4
--- NOTE | 2019-01-16 08:41 | US ---
EXAM: Renal ultrasound HISTORY: Abnormal MRI COMPARISON: MRI 01/10/2019 TECHNIQUE: Renal ultrasound was performed FINDINGS: The technologist less examination is limited due to patient body habitus and bowel gas sha dowing. Right kidney measures 4.6 x 0.2 x 11.8 cm. Left kidney measures 6.4 x 7.2 x 13.5 cm. Renal cortical echogenicity is normal. Anechoic regions in the bilateral kidneys may reflect parapelvic c ysts versus hydronephrosis. No renal calculus identified large enough to cause acoustic shadowing. Bladder only mildly distended and poorly very, grossly unremarkable. Visualized liver is echogenic. IMPRESSION: 1. Bilateral renal parapelvic cysts versus hydronephrosis. Correlation with CT urogram is recommend ed to determine which of these is present. 2. Hepatic steatosis.
== END 2019-01-16 07:59 | disposition home or self-care (01) ==
LOC: RAD 07:58
PROVIDERS: ATTEND Family Medicine
DX: R93.89 Abnormal findings on diagnostic imaging of other specified body structures (principal)

== ENCOUNTER 2019-05-12 09:37 | Day surgery (SDC) | payer OTHER ==
[2016-06-17 15:02] VITALS: BMI 30.4
[2019-05-12 10:40] VITALS: TEMP 96.9
[2019-05-12] MEDS ORDERED: LIDOCAINE 1% 20 ML MDV ID STA (10:40)
[2019-05-12] MEDS ORDERED: LIDOCAINE 1% 20 ML MDV ID ONE (11:14)
[2019-05-12] MEDS ORDERED: DIPRIVAN 20 ML VIAL IVP ONE (11:20)
[2019-05-12 14:07] VITALS: BP 155/88
--- NOTE | 2019-05-13 11:58 | OP ---
PROCEDURE: COLONOSCOPY TO ANASTOMOSIS WITH SNARE POLYPECTOMY. ENDOSCOPIST: Wolfgang JACOBS M.D. INDICATION: HISTORY OF COLON CANCER INSTRUMENT: [id number]. MEDICATION: PER ANESTHESIA. PROCEDURE: The patient was positioned for colonoscopy. The digital rectal exam was negative. The colonoscope was inserted through the anus and advanced to the anastomosis. The patient has undergone a right colectomy. Careful inspection made of each colonic segment and the scope was slowly withdraw through an adequately prepped colon. Small polyp at 40cm removed snare cautery. No other abnormalities were noted. Retroflex was negative. Withdraw time 7 minutes and 18 seconds. PLAN: 1. Repeat as needed. CC: Dr. Dionte WHITAKER
== END 2019-05-12 12:25 | disposition home or self-care (01) ==
LOC: SURG 09:37
PROVIDERS: ATTEND Internal Medicine Gastroenterology
DX: Z85.038 Personal history of other malignant neoplasm of large intestine (principal); D12.5 Benign neoplasm of sigmoid colon